=== PATIENT | male | born 1975 | race Caucasian/White ===

== ENCOUNTER 2024-07-18 19:21 | Emergency (ER) | payer OTHER ==
[2024-07-18 19:34] VITALS: TEMP 98.3; O2SAT 98
[2024-07-18 20:06] VITALS: BP 173/108; PULSE 69; RESP 19
--- NOTE | 2024-07-18 20:06 | ERPHSYRPT ---
- History of Present Illness Time Seen by Provider: 07/18/24 19:58 Source: patient Exam Limitations: no limitations Patient Subjective Stated Complaint: pt states he cut his L thumb slicing potatoes Triage Nursing Assessment: pt ambulatory to bed by self with steady gait, pt alert and oriented x3, pt presents with bandage to L thumb, bleeding controlled. wound noted on L thumb 0.8 x 0.3. tetanus is not utd Physician History: Pt states he was slicing potatoes about 3 hours ago at home and cut his right thumb tip on a mandolin; last tetanus is over 5 years ago. Allergies/Adverse Reactions: No Known Drug Allergies Allergy (Verified 07/18/24 19:27) Home Medications: No Reportable Medications [No Reported Medications] 07/18/24 [History] Hx Tetanus, Diphtheria Vaccination/Date Given: No Hx Influenza Vaccination/Date Given: No Hx Pneumococcal Vaccination/Date Given: No Immunizations Up to Date: No Travel Risk - International Travel Have you traveled outside of the country in past 3 weeks: No - Emerging Infectious Disease Are you exhibiting symptoms associated with any current EIDs: No - Review of Systems Musculoskeletal: Other Skin: Other (skin avulsion to right thumb tip today) - Past Medical History Pertinent Past Medical History: Yes Neurological History: No Pertinent History ENT History: No Pertinent History Cardiac History: No Pertinent History Respiratory History: No Pertinent History Endocrine Medical History: No Pertinent History Musculoskeletal History: No Pertinent History GI Medical History: No Pertinent History History: No Pertinent History Psycho-Social History: No Pertinent History Male Reproductive Disorders: No Pertinent History - Past Surgical History Past Surgical History: No Neuro Surgical History: No Pertinent History Cardiac: No Pertinent History Respiratory: No Pertinent History Gastrointestinal: No Pertinent History Genitourinary: No Pertinent History Musculoskeletal: No Pertinent History Male Surgical History: No Pertinent History - Social History Smoking Status: Never smoker Exposure to second hand smoke: No Drug Use: none - Social Determinants of Health Will the patient participate in the screening: Declined to provide - Nursing Vital Signs Nursing Vital Signs: Initial Vital Signs Temperature 98.3 F 07/18/24 19:28 Pulse Rate 75 07/18/24 19:28 Respiratory Rate 18 07/18/24 19:28 Blood Pressure 183/104 07/18/24 19:28 O2 Sat by Pulse Oximetry 98 07/18/24 19:28 Pain Scale Pain Intensity 0 - Physical Exam General Appearance: alert Shoulder Exam: normal ROM Elbow/Forearm Exam: normal ROM Wrist Exam: normal ROM Hand Exam: normal ROM, laceration (8mm X 3mm avulsion of skin of right thumb tip) Mental Status Exam: alert SpO2 Interpretation: normal SpO2: 98 O2 Delivery: Room Air - Course Nursing assessment & vital signs reviewed: Yes - Progress Progress: improved Counseled pt/family regarding: diagnosis, need for follow-up - Departure Departure Disposition: Home Clinical Impression: Skin Avulsion of right thumb tip Condition: Stable Critical Care Time: No Instructions: Wound Care (DC) Additional Instructions: Keep bandage on right thumb tip until your private doctor is seen tomorrow. Keep wound clean & dry.
[2024-07-18] MEDS ORDERED: KEFLEX 500 MG ONE (20:11)
[2024-07-18] MEDS ORDERED: Adacel Vial IM ONE (20:12)
[2024-07-18] MEDS: Adacel Vial IM ONE (20:16)
[2024-07-18] MEDS: KEFLEX 500 MG PO ONE (20:16)
== END 2024-07-18 20:28 | disposition home or self-care (01) ==
LOC: ED 19:21
DX: S61.012A Laceration without foreign body of left thumb without damage to nail, initial encounter (principal); W26.0XXA Contact with knife, initial encounter; Y93.G1 Activity, food preparation and clean up; Z23 Encounter for immunization
CPT/HCPCS: 90471; 90715; 99283; A9270-GY